=== PATIENT | female | born 1985 ===

== ENCOUNTER 2024-11-09 16:15 | Day surgery (SDC) | payer OTHER ==
[2024-11-09] MEDS: IRON DEXTRAN COMPLEX 1,000 MG in SODIUM CHLORIDE 250 ML IVPB ONE (16:36)
[2024-11-09 17:35] VITALS: RESP 20; TEMP 98.4
[2024-11-09 18:12] VITALS: BP 106/62; PULSE 72
== END 2024-11-09 18:00 | disposition home or self-care (01) ==
LOC: J7W 16:15 → JONCNONCHE 16:15
PROVIDERS: ATTEND Internal Medicine Hematology & Oncology
PROC: 3E033GC Introduction of Other Therapeutic Substance into Peripheral Vein, Percutaneous Approach (ICD-10-PCS; principal; 2024-11-09)
DX: D50.9 Iron deficiency anemia, unspecified (principal)
CPT/HCPCS: 96365; J1750